=== PATIENT | male | born 1975 | race Caucasian/White ===

== ENCOUNTER → 2021-07-24 | Outpatient (CLI) | payer BC | LOC: EMI 07-23 09:00 → MRI 08:43 → EMI 07-30 09:00 | DX: R41.3 Other amnesia (principal); M48.02 Spinal stenosis, cervical region; M47.812 Spondylosis without myelopathy or radiculopathy, cervical region; M51.34 Other intervertebral disc degeneration, thoracic region; M47.26 Other spondylosis with radiculopathy, lumbar region | CPT/HCPCS: 70553; 72100; 72156; 72157; 72158; A9577 ==

== ENCOUNTER → 2022-03-02 | Outpatient (CLI) | payer BC | LOC: KOH-I 13:31 | DX: M25.552 Pain in left hip (principal) | CPT/HCPCS: 73502 ==